=== PATIENT | male | born 1995 | race Caucasian/White ===

== ENCOUNTER 2018-02-21 02:57 | Emergency (ER) | payer SELFPAY ==
[2018-02-21 03:09] VITALS: BP 129/86; PULSE 83; RESP 16; TEMP 97.1; O2SAT 99
== END 2018-02-21 03:32 | disposition home or self-care (01) | DRG 881 ==
LOC: ED 02:57
DX: F43.21 Adjustment disorder with depressed mood (principal)
CPT/HCPCS: 99282